=== PATIENT | female | born 1995 | race Caucasian/White ===

== ENCOUNTER 2023-02-27 13:55 | Emergency (ER) | payer MEDICAID, SELFPAY ==
[2023-02-27 14:17] VITALS: BP 134/83; PULSE 78; RESP 18; TEMP 36.9; O2SAT 98; BMI 20.9
[2023-02-27] MEDS: IBUPROFEN 400 MG TABLET PO (14:42)
--- NOTE | 2023-02-27 15:35 | PC.NURSE ---
PT STATES LEFT HAND PINCHED BY LADDER. 1 CM X 1 CM PUNCTURE TO LEFT HAND
--- NOTE | 2023-02-27 16:03 | ED_ITS ---
Documented by User: Tiffanie Lowe 02/27/23 16:08 HPI - General Adult General Chief complaint: Extremity Injury, Upper Stated complaint: LT HAND INJURY Time Seen by Provider: 02/27/23 15:31 Source: patient Mode of arrival: walk-in Limitations: no limitations History of Present Illness HPI narrative: 27-year-old female presents here with a chief complaint of a 2.5 magali laceration to the palmar aspect of her left hand. Subcuticular fat is exposed. Small amount of bleeding is noted. Patient states she was working with a [employer] chairs Her hand. Last tetanus shot was six years ago. Otherwise healthy. She is right- hand dominant. Related Data Home Medications Medication Instructions Recorded Confirmed citalopram 10 mg tablet 10 mg PO DAILY 02/27/23 02/27/23 Allergies Allergy/AdvReac Type Severity Reaction Status Date / Time No Known Drug Allergies Allergy Verified 02/27/23 14:26 Review of Systems ROS Narrative All Systems are negative except as noted/marked.All systems reviewed and otherwise negative PFSH PFSH Social History Smoking status: Current every day smoker Exam Narrative Exam Narrative: Nurses note and vital signs reviewed and patient is not hypoxic. General: The patient appears well and in no apparent distress. Patient is resting comfortably on cart. Skin: Warm, dry, no pallor noted. There is no rash noted. Head: Normocephalic, atraumatic Musculoskeletal: 2.5 cm by avulsive laceration noted to the palmar aspect of the left hand, The patient has no evidence of calf tenderness, no pitting edema, symmetrical pulses noted bilaterally Neurological: A&O x4, normal speech Psychiatric: Cooperative Constitutional Vital Signs, click to edit/add: Last Vital Signs Temp 98.4 F 02/27/23 14:17 Pulse 78 02/27/23 14:17 Resp 18 02/27/23 14:17 BP 134/83 02/27/23 14:17 Pulse Ox 98 02/27/23 14:17 O2 Del Method Room Air 02/27/23 14:17 Course Vital Signs Vital signs: Vital Signs Temperature 98.4 F 02/27/23 14:17 Pulse Rate 78 02/27/23 14:17 Respiratory Rate 18 02/27/23 14:17 Blood Pressure 134/83 02/27/23 14:17 Pulse Oximetry 98 02/27/23 14:17 Oxygen Delivery Method Room Air 02/27/23 14:17 Temperature 98.4 F 02/27/23 14:17 Pulse Rate 78 02/27/23 14:17 Respiratory Rate 18 02/27/23 14:17 Blood Pressure 134/83 02/27/23 14:17 Pulse Oximetry 98 02/27/23 14:17 Oxygen Delivery Method Room Air 02/27/23 14:17 Medical Decision Making Medical Records Medical records narrative: She presented here chief complaint of a laceration to the palm aspect of the left hand. Area was irrigated with Hibiclens normal saline. Draped in sterile fashion. One percent lidocaine solution injected locally ?3 mL. Simple sutures were noted and placed with 4-0 Ethilon to each end of the laceration. And was reapproximated well. Patient tolerated well. Suture instructions for her at home were discussed including keeping hand clean and dry. Movable stitches in 10-14 days with primary care physician. Patient verbalizes understanding resupply of care. Patient up-to-date on tetanus here in emergency room. Discharge Plan Discharge Chief Complaint: Extremity Injury, Upper Clinical Impression: Hand laceration Patient Disposition: Home, Self-Care Time of Disposition Decision: 16:07 Condition: Good Prescriptions / Home Meds: No Action citalopram 10 mg tablet 10 mg PO DAILY Instructions: Laceration (ED) Stand Alone Forms: Portal Instructions Referrals: REYMUNDO WILLIS [Primary Care Provider] - 1 week (follow up for suture removal in 10-14 days) Discharge Date/Time: 02/27/23 16:19 Documented by User: Kota Munguia MD 02/27/23 21:13 HPI - General Adult General Chief complaint: Extremity Injury, Upper Stated complaint: LT HAND INJURY Time Seen by Provider: 02/27/23 15:31 Related Data Home Medications Medication Instructions Recorded Confirmed citalopram 10 mg tablet 10 mg PO DAILY 02/27/23 02/27/23 Allergies Allergy/AdvReac Type Severity Reaction Status Date / Time No Known Drug Allergies Allergy Verified 02/27/23 14:26 PFSH PFS Social History Smoking status: Current every day smoker Exam Constitutional Vital Signs, click to edit/add: Last Vital Signs Temp 98.4 F 02/27/23 14:17 Pulse 78 02/27/23 14:17 Resp 18 02/27/23 14:17 BP 134/83 02/27/23 14:17 Pulse Ox 98 02/27/23 14:17 O2 Del Method Room Air 02/27/23 14:17 Course Vital Signs Vital signs: Vital Signs Temperature 98.4 F 02/27/23 14:17 Pulse Rate 78 02/27/23 14:17 Respiratory Rate 18 02/27/23 14:17 Blood Pressure 134/83 02/27/23 14:17 Pulse Oximetry 98 02/27/23 14:17 Oxygen Delivery Method Room Air 02/27/23 14:17 Temperature 98.4 F 02/27/23 14:17 Pulse Rate 78 02/27/23 14:17 Respiratory Rate 18 02/27/23 14:17 Blood Pressure 134/83 02/27/23 14:17 Pulse Oximetry 98 02/27/23 14:17 Oxygen Delivery Method Room Air 02/27/23 14:17 Medical Decision Making Medical Records Medical records narrative: She presented here chief complaint of a laceration to the palm aspect of the left hand. Procedure note Area was irrigated with Hibiclens normal saline. Draped in sterile fashion. One percent lidocaine solution injected locally ?3 mL. Simple sutures were noted and placed with 4-0 Ethilon to each end of the laceration. Lac was reapproximated well. Patient tolerated well. Suture instructions for her at home were discussed including keeping hand clean and dry. Movable stitches in 10-14 days with primary care physician. Patient verbalizes understanding resupply of care. Patient up-to-date on tetanus here in emergency room. I, Dr Munguia, have reviewed the above progress note and course of action in the ER; agree with the above. I have personally seen and evaluated this patient, gone over history and physical, and discussed disposition and treatment plan with the patient. Discharge Plan Discharge Chief Complaint: Extremity Injury, Upper Clinical Impression: Hand laceration Patient Disposition: Home, Self-Care Time of Disposition Decision: 16:07 Condition: Good Prescriptions / Home Meds: No Action citalopram 10 mg tablet 10 mg PO DAILY Instructions: Laceration (ED) Stand Alone Forms: Portal Instructions Referrals: REYMUNDO WILLIS [Primary Care Provider] - 1 week (follow up for suture removal in 10-14 days) Discharge Date/Time: 02/27/23 16:19
[2023-02-27] MEDS: LIDOCAINE HCL 2% 400 MG/20 ML MDV 15 ML INJ (16:06)
[2023-02-27] MEDS: ADACEL DIPH,PERTUSS(ACELL),TET VAC/PF 0.5 ML ADULT SYRINGE IM (16:13)
== END 2023-02-27 16:19 | disposition home or self-care (01) ==
PROVIDERS: Emergency Provider Emergency Medicine; PCP Family Medicine
DX: S61.412A Laceration without foreign body of left hand, initial encounter (principal); Z23 Encounter for immunization; F17.210 Nicotine dependence, cigarettes, uncomplicated; W23.0XXA Caught, crushed, jammed, or pinched between moving objects, initial encounter
CPT/HCPCS: 12001; 90471; 90715; 99283

== ENCOUNTER 2025-05-17 20:14 | Outpatient (REF) | payer MEDICAID, SELFPAY ==
--- OUTSIDE RECORDS SUMMARY | 2025-05-17 13:00 | XMS_ITS | Encounter Summary ---
Author Organization [facility] Address [address] [place] [address] Care Team Providers Care Principal Strategist Name Role Phone Raoul Crystal MD Primary Care Provider + [phone] Reason for Visit * ReasonCommentsGynecologic Exam Encounter Details DateTypeDepartmentCare Team (Latest Contact Info)Bchkgvzaoza42/22/2025 1:00 PM EDTProcedure Visit [facility] [address] [place] [id number] Tiffanie Lowe PA [address] [place], [facility] Well woman exam with routine gynecological exam; Urinary tract infection without hematuria, site unspecified Social History Tobacco UseTypesPacks/DayYears UsedDateSmoking Tobacco: Some DaysCigarettes Smokeless Tobacco: NeverAlcohol UseStandard Drinks/WeekCommentsNot Currently0 (1 standard drink = 0.6 oz pure alcohol)occasionalCommentsNoSex and Gender InformationValueDate RecordedSex Assigned at BirthNot on fileLegal SexFemale 10/08/2022 6:53 PM EDTGender IdentityNot on fileSexual OrientationNot on file documented as of this encounter Last Filed Vital Signs Vital SignReadingTime TakenCommentsBlood Ikvqxztp045/6205/17/2025 1:17 PM EDT Pulse--Temperature--Respiratory Rate--Oxygen Saturation--Inhaled Oxygen Concentration--Fgoquz29.2 kg (115 lb)05/17/2025 1:17 PM OUORuqzfl474.1 cm (5' 5 )05/17/2025 1:17 PM EDTBody Mass Index19.141 1:17 PM EDTdocumented in this encounter Progress Notes * Kayla AvilaLAMONT - 05/17/2025 1:00 PM EDT Reason for Appointment: Patient ID: Heydi Donaldson is a 29 y.o. female who presents for Gynecologic Exam Patient presents today for Annual Exam. MEDICATIONS Current Outpatient Medications Medication Instructions acetic acid-hydrocortisone (Vosol-HC) otic solution INSTILL 4 DROPS INTO LEFT EAR TWICE A DAY - - IN THE MORNING AND BEFORE BEDTIME citalopram (CELEXA) 20 mg, Oral, Daily fluocinonide (Lidex) 0.05 % ointment 1 application , Topical, 2 times daily ondansetron ODT (ZOFRAN-ODT) 4 mg, Oral, As needed traMADol (ULTRAM) 50 mg, Oral, As needed Ventolin HFA 108 (90 Base) MCG/ACT inhaler 2 puffs, Inhalation, Every 4 hours PRN ALLERGIES No Known Allergies PROBLEMS Active Ambulatory Problems Diagnosis Date Noted No Active Ambulatory Problems Resolved Ambulatory Problems Diagnosis Date Noted No Resolved Ambulatory Problems Past Medical History: Diagnosis Date Asthma (HCC) Depression with anxiety IBS (irritable bowel syndrome) PTSD (post-traumatic stress disorder) Renal agenesis, unilateral HISTORY PAST MEDICAL HISTORY SOCIAL HISTORY Past Medical History: Diagnosis Date Asthma (HCC) Depression with anxiety IBS (irritable bowel syndrome) PTSD (post-traumatic stress disorder) Renal agenesis, unilateral Social History Tobacco Use Smoking status: Some Days Types: Cigarettes Smokeless tobacco: Never Substance Use Topics Alcohol use: Not Currently Comment: occasional Drug use: Never FAMILY HISTORY Family History Problem Relation Name Age of Onset Hypertension Mother Hyperlipidemia Mother Thyroid disease Mother Thyroid disease Father Hypertension Father Hyperlipidemia Father Mental illness Father SURGICAL HISTORY Past Surgical History: Procedure Laterality Date SECTION, LOW TRANSVERSE TONSILLECTOMY REVIEW OF SYSTEMS Review of Systems: Review of Systems Constitutional: Negative. HENT: Negative. Eyes: Negative. Respiratory: Negative. Cardiovascular: Negative. Gastrointestinal: Negative. Genitourinary: Negative. Musculoskeletal: Negative. Skin: Negative. Neurological: Negative. All other systems reviewed and are negative. Hematological: Negative. Endocrine: Negative. Allergic/Immunologic: Negative. OBJECTIVE Objective: Physical Exam Constitutional: Appearance: Normal appearance. She is well-developed. Genitourinary: Vulva normal. Breasts: Breasts are soft. Right: Normal. Left: Normal. Cardiovascular: Rate and Rhythm: Normal rate and regular rhythm. Pulmonary: Effort: Pulmonary effort is normal. Breath sounds: Normal breath sounds. Abdominal: General: Bowel sounds are normal. There is no distension. Palpations: Abdomen is soft. Tenderness: There is no abdominal tenderness. There is no guarding or rebound. Musculoskeletal: General: No swelling. Normal range of motion. Right lower leg: No edema. Left lower leg: No edema. Neurological: Mental Status: She is alert and oriented to person, place, and time. Skin: General: Skin is warm and dry. Psychiatric: Mood and Affect: Mood normal. Behavior: Behavior normal. Vitals and nursing note reviewed. Exam conducted with a solid die cutter present. Vitals: Estimated body mass index is 19.14 kg/m?? as calculated from the following: Height as of this encounter: 5' 5 . Weight as of this encounter: 115 lb. BP: 112/62 No LMP recorded. Patient has had an implant. Assessment/Plan ICD-10-CM 1. Well woman exam with routine gynecological exam Z01.419 Pap Smear HPV DNA probe, amplified 2. Urinary tract infection without hematuria, site unspecified N39.0 POCT urinalysis dipstick manually resulted Annual Exam: Patient presents today for an annual exam. Patient has complaint of a UTI. Pt states she urinates and does not feel like she empties bladder completely and lower back pain. PT states she has a H/O UTI's. Pts urine came back negative. Pt was given a urine cup for a sample to test. Pap was obtained without difficulty. Orders Placed This Encounter Procedures HPV DNA probe, amplified POCT urinalysis dipstick manually resulted Follow Up: Patient is to return in one year for annual unless needed otherwise. Documented by Kayla Avila MA on behalf of: PAMELA Sawant documented in this encounter Plan of Treatment DateTypeDepartmentCare Team (Latest Contact Info)Itwikvkcuee18/28/2026 3:00 PM EDTProcedure Visit [facility] [address] [place] [address] [place] [address] Ryan Nunez, DO [address] [place] [address] [place] [address] NameTypePriorityAssociated DiagnosesOrder SchedulePap SmearPathology and CytologyRoutine Well woman exam with routine gynecological exam Ordered: 05/17/2025HPV DNA probe, amplifiedMicrobiologyRoutine Well woman exam with routine gynecological exam Ordered: 05/17/2025documented as of this encounter Procedures Procedure NamePriorityDate/TimeAssociated DiagnosisCommentsPOCT URINALYSIS ZVEFSWIDTnqnskh80/22/2025 1:22 PM EDT Urinary tract infection without hematuria, site unspecified documented in this encounter Results * POCT urinalysis dipstick manually resulted (05/17/2025 1:22 PM EDT)Component ValueRef RangeTest MethodAnalysis TimePerformed AtPathologist SignatureColor, UAYellowClarity, UAClearGlucose, UANegativeNegative - 2000(110) ++++ mg/dL Bilirubin, UANegativeNegative - 4(70) +++ mg/dLKetones, UANegativeNegative - 160(16) ++++ mg/dLSpec Grav, UA1.0051 - 1.03Blood, UANegativeNegative - 50 Martin/mcLpH, UA8.05 - 9Protein, UANegativeNegative - 2000(20) ++++ mg/dL Urobilinogen, UA1.00.2 - 12 mg/dLLeukocytes, UANegativeNegative - 500+++ Mauricio/mcLNitrite, UANegativeNegative - PositiveSpecimen (Source)Anatomical Location / LateralityCollection Method / VolumeCollection TimeReceived Time Urine05/17/2025 1:22 PM EDT Narrative Authorizing ProviderResult TypeResult StatusAmy [place] PAPOINT OF CARE TEST ENTER/EDIT ORDERABLESFinal Result documented in this encounter Visit Diagnoses Diagnosis Well woman exam with routine gynecological exam Routine gynecological examination Urinary tract infection without hematuria, site unspecified documented in this encounter Care Teams Team MemberRelationshipSpecialtyStart DateEnd Date Raoul Crystal MD PCP - GeneralFamily Wuplakgl19/9/23documented as of this encounter
--- OUTSIDE RECORDS SUMMARY | 2025-05-17 20:19 | XMS_ITS | Clinical Summary ---
Author Organization [facility] Address [address] [place] [address] Care Team Providers Care Barrel Washer Machine Name Role Phone Raoul Crystal MD Primary Care Provider + [phone] Allergies No known active allergies Medications MedicationSigDispense QuantityRefillsLast FilledStart DateEnd DateStatus citalopram (CeleXA) 20 MG tablet Take 20 mg by mouth in the morning.Active Ventolin HFA 108 (90 Base) MCG/ACT inhaler Inhale 2 puffs every 4 (four) hours if needed.01/27/2023ctive fluocinonide (Lidex) 0.05 % ointment Apply 1 application topically in the morning and 1 application in the evening. 01/29/2023ctive acetic acid-hydrocortisone (Vosol-HC) otic solution INSTILL 4 DROPS INTO LEFT EAR TWICE A DAY - - IN THE MORNING AND BEFORE BEDTIME 11/20/2022ctive ondansetron ODT (Zofran-ODT) 4 MG disintegrating tablet Take 4 mg by mouth if needed.Active traMADol (Ultram) 50 MG tablet Take 50 mg by mouth if needed.01/29/2023ctiveHospital, Clinic, or Other Facility Administered MedicationOrdered DoseRouteFrequencyStart DateEnd Date Status etonogestrel-eluting 68 mg contraceptive implant 1 each Indications:Encounter for removal and reinsertion of Nexplanon1 eachILContinuous 5009/13/2027ctive Active Problems No known active problems Encounters DateTypeDepartmentCare FkewSzykgzebukf97/22/2025 1:00 PM EDTProcedure Visit [facility] [address] [place] [address] [place] [address] Tiffanie Lowe PA Well woman exam with routine gynecological exam; Urinary tract infection without hematuria, site hyfynxzbgyl14/22/2025amboo flowsheet [facility] [address] [place] [address] Tiffanie Lowe PA from Last 3 Months Family History Medical HistoryRelationNameCommentsHyperlipidemiaFatherHypertensionFatherMental illnessFatherThyroid diseaseFatherHyperlipidemiaMotherHypertensionMotherThyroid diseaseMotherRelationNameStatusCommentsDaughterAliveFatherMotherSonAlive Social History Tobacco UseTypesPacks/DayYears UsedDateSmoking Tobacco: Some DaysCigarettes Smokeless Tobacco: Never Tobacco Cessation:Ready to Q uit: Not Asked; Counseling Given: Not Answered Alcohol UseStandard Drinks/WeekCommentsNot Currently0 (1 standard drink = 0.6 oz pure alcohol)occasionalCommentsNoSex and Gender InformationValueDate RecordedSex Assigned at BirthNot on fileLegal YffCvbizm74/15/2023 6:53 PM EDT Gender IdentityNot on fileSexual OrientationNot on file Last Filed Vital Signs Vital SignReadingTime TakenCommentsBlood Mwdkpmbf650/6205/17/2025 1:17 PM EDT Irode5119 4:29 PM ESTTemperature--Respiratory Rate--Oxygen Saturation-- Inhaled Oxygen Concentration--Ocbndt49.2 kg (115 lb)05/17/2025 1:17 PM EDTHeight 165.1 cm (5' 5 )05/17/2025 1:17 PM EDTBody Mass Index19.1410 1:17 PM EDT Plan of Treatment DateTypeDepartmentCare Team (Latest Contact Info)Nacixapamgu18/28/2026 3:00 PM EDTProcedure Visit [facility] [address] [place] [address] Ryan Nunez DO [address] [place] [address] Procedures Procedure NamePriorityDate/TimeAssociated DiagnosisCommentsPOCT URINALYSIS XLBMABDXCaeadwm55/22/2025 1:22 PM EDT Urinary tract infection without hematuria, site unspecified from Last 3 Months Results * POCT urinalysis dipstick manually resulted (05/17/2025 1:22 PM EDT)Component ValueRef RangeTest MethodAnalysis TimePerformed AtPathologist SignatureColor, UAYellowClarity, UAClearGlucose, UANegativeNegative - 1999(110) ++++ mg/dL Bilirubin, UANegativeNegative - 4(70) +++ mg/dLKetones, UANegativeNegative - 160(16) ++++ mg/dLSpec Grav, UA1.0051 - 1.03Blood, UANegativeNegative - 50 Martin/mcLpH, UA8.05 - 9Protein, UANegativeNegative - 2000(20) ++++ mg/dL Urobilinogen, UA1.00.2 - 12 mg/dLLeukocytes, UANegativeNegative - 500+++ Mauricio/mcLNitrite, UANegativeNegative - PositiveSpecimen (Source)Anatomical Location / LateralityCollection Method / VolumeCollection TimeReceived Time Urine05/17/2025 1:22 PM EDT Narrative Authorizing ProviderResult TypeResult StatusAmy [facility] CARE TEST ENTER/EDIT ORDERABLESFinal Result from Last 3 Months Insurance Care Teams Team MemberRelationshipSpecialtyStart DateEnd Date Raoul Crystal MD PCP - GeneralFamily Saomaavd94/9/23
--- OUTSIDE RECORDS SUMMARY | 2025-05-17 20:19 | XMS_ITS | Clinical Summary ---
Author Organization [employer] Address [facility] [id number] [address] [place] [address] Care Team Providers Care Furniture Repair Technician Name Role Phone Vipin Mckeon MD Primary Care Provider [phone] Allergies No known active allergies Medications MedicationSigDispense QuantityRefillsLast FilledStart DateEnd DateStatus etonogestreL (NEXPLANON) 68 mg implant 1 each (68 mg total) by subdermal route once.Active ondansetron (ZOFRAN) 4 mg tablet Take 1 tablet (4 mg total) by mouth every 8 (eight) hours as needed for nausea or vomiting. 20 tablet 09/09/2023ctive fluocinonide (LIDEX) 0.05 % ointment Indications:Other infective chronic otitis externa of left ear,Otomycosis of left earapply topically IN THE MORNING and BEFORE BEDTIME 30 g 12/10/2023ctive AMBULATORY COMPOUNDED MEDICATION Place 6 drops in the left ear three times a day as directed 15 mL 504Active albuterol (VENTOLIN HFA) 90 mcg/actuation inhaler Indications:Mild intermittent asthma without complicationInhale 2 puffs every 6 (six) hours as needed for wheezing. 18 g 1104Active BIOTIN ORAL Take by mouth.Active amphetamine-dextroamphetamine XR (ADDERALL XR) 25 mg 24 hr capsule Indications:Attention deficit hyperactivity disorder (ADHD), predominantly inattentive typeTake 1 capsule (25 mg total) by mouth every morning. Max Daily Amount: 25 mg 15 capsule 5Active Active Problems ProblemNoted DateDiagnosed DateCerumen debris on tympanic membrane of both ears 12/18/2022Fetal renal anomaly, single eanylqsfz58/17/2020Renal abnormality of fetus on jonpwiwews52/17/2020Hearing difficulty of left ear12/22/2019 IBS (irritable bowel syndrome)12/30/2018Nasal /22/2019Depression with ibwpmsl3807/13/2018Left otitis media06/10/2018 Immunizations ImmunizationAdministration DatesNext MemQpfu40/08/2018 Family History Medical HistoryRelationNameCommentsHeart diseaseFatherHyperlipidemiaFather HypertensionFatherHypothyroidismFatherStrokeMaternal GrandmotherHyperlipidemia MotherHypertensionMotherRelationNameStatusCommentsFatherAliveMaternal GrandmotherMotherAlive Social History Tobacco UseTypesPacks/DayYears UsedDateSmoking Tobacco: Every DayCigarettes Smokeless Tobacco: Never Comments:patient quit when s he was around 3 months Alcohol UseStandard Drinks/WeekCommentsNot Currently0 (1 standard drink = 0.6 oz pure alcohol)rarelySocial Connection and Isolation PanelAnswerDate Recorded Frequency of Communication with Friends and FamilyMore than three times a week 02/02/2019Frequency of Social Gatherings with Friends and FamilyTwice a week 02/02/2019Attends [employer]1 to 4 times per year02/02/2019Active Member of Clubs or IwufbalkwptosIh35/10/2019Attends Club or Organization Meetings Patient hfvhejxw42/10/2019Marital StatusNever hvwahyk3502/02/2019AUDIT-CAnswerDate RecordedFrequency of Alcohol ConsumptionMonthly or less02/02/2019Average Number of Drinks3 or Frequency of Binge DrinkingLess than fdksbqx2202/02/2019 Overall Financial Resource Strain (CARDIA)AnswerDate RecordedHow hard is it for you to pay for the very basics like food, housing, medical care, and heating?Not hard at all4PHQ-2AnswerDate RecordedTotal Gixeb579[facility] [place] [facility] - Occupational Stress QuestionnaireAnswerDate RecordedFeeling of StressTo some sytzdp0302/02/2019Exercise Vital SignAnswerDate RecordedDays of Exercise per Week1 day02/02/2019Minutes of Exercise per Session 10 min02/02/2019PRAPARE - TransportationAnswerDate RecordedIn the past 12 months, has lack of transportation kept you from medical appointments or from getting medications?No11/10/2023In the past 12 months, has lack of transportation kept you from meetings, work, or from getting things needed for daily living?No11/10/2023Housing InstabilityAnswerDate RecordedAre you worried or concerned that in the next two months you may not have stable housing that you own, rent or stay in as a part of a household?No4ChildcareAnswer Date KnrcpryuUctnhpacaVq19/10/2019EmploymentAnswerDate RecordedEmploymentNo 02/02/2019Hunger ScreeningAnswerDate RecordedWithin the past 12 months we worried whether our food would run out before we got money to buy more.Never True11/15/2024Within the past 12 months the food we bought just didn't last and we didn't have money to get more.Never True11/15/2024Purpose - LifeAnswerDate RecordedPurpose and direction in whviDunhqqm50/14/2021EducationAnswerDate RecordedWhat is the highest level of school you have completed or the highest degree you have received?GED or vwphofjxkd71/10/2019CommentsNoSex and Gender InformationValueDate RecordedSex Assigned at BirthNot on fileLegal Sex Ibzgnm9103/01/2015 12:04 PM EDTGender IdentityNot on fileSexual OrientationNot on file Last Filed Vital Signs Vital SignReadingTime TakenCommentsBlood Dbcyrcrl988/6204 2:55 PM EDT Dambp68063/22/2025 2:55 PM BAOMazqnzgshcm94 ??C (96.8 ??F)08/15/2024 1:13 PM EST Respiratory Envu678511/15/2024 2:55 PM EDTOxygen Grqoykywnh96%11/15/2024 2:55 PM EDTInhaled Oxygen Concentration--Sqrygw60.7 kg (114 lb)11/15/2024 2:55 PM EDT Rtjdou700.1 cm (5' 5 )06/17/2024 10:57 AM ESTBody Mass Index18.9711/ 10:57 AM EST Plan of Treatment DateTypeDepartmentCare Team (Latest Contact Info)Tunpjisinsp94/23/2026 1:30 PM EDTOffice Visit [facility] [place] [phone] Vipin Mckeon MD [address] [place], [place] [id number] Health MaintenanceDue DateLast DoneCommentsTobacco Yixavgvwyh97/28/1995Influenza Fkcaksc6403/27/2025Pap Smear11//497003/dult BMI Bpqkqodrd19/22/2026 11/15/2024Depression Iomvncsnj39Tobacco Frmanygit19/22/2026 11/15/2024DTaP,Tdap and Td Vaccines (2 - Td or Tdap) Medical Devices Not on file Insurance * Guarantor: Jess Donaldson TypeRelation to PatientDate of PhoneBilling AddressThird Democrat BedlwgkxlYfat19/28/[address] [place] [address] Care Teams Team MemberRelationshipSpecialtyStart DateEnd Date Vipin Mckeon MD [address] [place] [id number] PCP - GeneralInternal Medicine11/15/24
--- OUTSIDE RECORDS SUMMARY | 2025-05-17 20:19 | XMS_ITS | Encounter Summary ---
Author Organization [facility] Address [address] [place] [address] Care Team Providers Care Senior Mobile Web Developer Name Role Phone Raoul Crystal MD Primary Care Provider [phone] Encounter Details DateTypeDepartmentCare Team (Latest Contact Info)Snqqdlmjxme90/22/2025amboo flowsheet [facility] [address] [place] [address] [place] [address] Tiffanie Lowe PA [address] [place], [place] [address] Social History Tobacco UseTypesPacks/DayYears UsedDateSmoking Tobacco: Some DaysCigarettes Smokeless Tobacco: NeverAlcohol UseStandard Drinks/WeekCommentsNot Currently0 (1 standard drink = 0.6 oz pure alcohol)occasionalCommentsNoSex and Gender InformationValueDate RecordedSex Assigned at BirthNot on fileLegal SexFemale 10/08/2022 6:53 PM EDTGender IdentityNot on fileSexual OrientationNot on file documented as of this encounter Plan of Treatment DateTypeDepartmentCare Team (Latest Contact Info)Pgmjxuccaau72/28/2026 3:00 PM EDTProcedure Visit [facility] [address] [place] [address] [place] [address] Ryan Nunez DO [address] [place] [address] documented as of this encounter Visit Diagnoses Not on filedocumented in this encounter Care Teams Team MemberRelationshipSpecialtyStart DateEnd Date Raoul Crystal MD PCP - GeneralFamily Fyvgpzvu77/9/23documented as of this encounter
== END 2025-05-17 20:15 | disposition home or self-care (01) ==
LOC: LAB 20:14
PROVIDERS: PCP Family Medicine; Visit Provider Physician Assistant
DX: Z01.419 Encounter for gynecological examination (general) (routine) without abnormal findings (principal)
CPT/HCPCS: 87624; 88175